=== PATIENT | female | born 1995 | race Caucasian/White ===

== ENCOUNTER 2022-07-20 06:00 | Inpatient (IN) | payer BC, OTHER ==
[2022-07-20 07:44] VITALS: BMI 27.3
[2022-07-20] MEDS: Lactated Ringer's 1,000 ML IV SCH ×2 (08:15→12:19)
[2022-07-20] MEDS ORDERED: hydrALAZINE 20 MG/ML VIAL SLOW IVP PRN ×2 (08:37→15:25)
[2022-07-20] MEDS ORDERED: Diphenoxylate HCl/Atropine Tablet PO PRN (08:37)
[2022-07-20] MEDS ORDERED: Acetaminophen 500 MG TAB PO PRN (08:37)
[2022-07-20] MEDS ORDERED: Lidocaine 1% (PF) 30 ML VIAL SC PRN (08:37)
[2022-07-20] MEDS ORDERED: HYDROcodone/Acetaminophen 5/325 mg Tablet PO PRN ×3 (08:37→15:25)
[2022-07-20] MEDS ORDERED: Promethazine HCl 25 MG/ML VIAL IM PRN ×2 (08:37→12:22)
[2022-07-20] MEDS ORDERED: Methylergonovine 0.2 MG/ML VIAL IM PRN (08:37)
[2022-07-20] MEDS ORDERED: Butorphanol Tartrate 1 MG/ML VIAL SLOW IVP PRN (08:37)
[2022-07-20] MEDS ORDERED: Misoprostol 200 MCG TAB PR PRN (08:37)
[2022-07-20] MEDS ORDERED: Ondansetron PF 4 MG/2 ML Vial IVP PRN ×3 (08:37→15:25)
[2022-07-20] MEDS ORDERED: Carboprost 250 MCG/ML AMP IM PRN (08:37)
[2022-07-20] MEDS ORDERED: Ibuprofen 800 MG TAB PO PRN (08:37)
[2022-07-20] MEDS ORDERED: NS w/ Oxytocin 30 units 500 ML IV SCH ×2 (08:45)
[2022-07-20 09:02] LABS: Hemoglobin 13.3 g/dL (12.0-15.5); Mean Corpuscular HGB CONC 34.9 g/dL (32.0-36.0); Mean Corpuscular Hemoglobin 29.2 pg (27.0-33.0); Mean Corpuscular Volume 83.7 fl (81.6-98.3); Mean Platelet Volume 10.8 fl (7.4-10.4); Platelet Count 200 10x3/uL (150-450); RBC Distribution Width 12.3 % (11.5-14.5); Red Blood Cell (RBC) Count 4.55 10x6/uL (3.90-5.03); White Blood Cell (WBC) Count 9.8 10x3/uL (3.5-10.5)
[2022-07-20 09:24] LABS: HBSAg Index 0.15 S/CO (0-0.99); Hep B Surf Ag Non-Reactive S/CO (NonReactive)
[2022-07-20 09:26] LABS: Syphilis Antibody Nonreactive (Nonreactive); Syphilis Antibody Index 0.03 S/CO (<1.00 Non-Reactive)
[2022-07-20 09:50] LABS: SARS-CoV-2 NAA Rapid Test Not Detected (NotDetected)
[2022-07-20] MEDS ORDERED: Fentanyl 2 mcg/Bup 0.1% Cadd 100 ML ONE (11:48)
[2022-07-20] MEDS ORDERED: ePHEDrine Sulfate 50 MG/10 ML VIAL SLOW IVP PRN (12:22)
[2022-07-20] MEDS ORDERED: Lactated Ringer's 500 ML IV PRN (12:22)
[2022-07-20] MEDS ORDERED: Moisturizing Cream (Eucerin) 113 GM JAR TOP PRN (12:22)
[2022-07-20] MEDS ORDERED: diphenhydrAMINE 50 MG/ML VIAL IVP PRN (12:22)
[2022-07-20] MEDS ORDERED: Acetaminophen 325 MG TAB PO PRN (12:22)
[2022-07-20] MEDS ORDERED: Naloxone HCl 0.4 mg/ml Vial IVP PRN ×2 (12:22)
[2022-07-20] MEDS ORDERED: Fentanyl 2 mcg/Bupivacaine 0.1% Cassette 100 ML EPIDURAL SCH (12:30)
[2022-07-20] MEDS ORDERED: Communication Order-Pharmacy FS SCH (12:30)
[2022-07-20] MEDS ORDERED: Famotidine/PF 20 mg/2ml Vial ONE (12:45)
[2022-07-20] MEDS ORDERED: Azithromycin 500 MG VIAL ONE (12:45)
[2022-07-20] MEDS ORDERED: CEFAZOLIN 2 GM VIAL ONE (12:45)
[2022-07-20] MEDS ORDERED: Misoprostol 200 MCG TAB ONE (12:53)
[2022-07-20] MEDS ORDERED: Methylergonovine 0.2 MG/ML VIAL ONE (12:54)
[2022-07-20] MEDS ORDERED: Bupivacaine 0.25% HCL 30 ML VIAL ONE (13:00)
[2022-07-20] MEDS ORDERED: Lanolin Ointment 7 GM TUBE TOP PRN (15:25)
[2022-07-20] MEDS ORDERED: Milk Of Magnesia 30 ML UDCUP PO PRN (15:25)
[2022-07-20] MEDS ORDERED: Bisacodyl 10 MG SUPP PR PRN (15:25)
[2022-07-20] MEDS ORDERED: Preparation H Ointment 28 GM TUBE PR PRN (15:25)
[2022-07-20] MEDS ORDERED: diphenhydrAMINE 25 MG CAP PO PRN (15:25)
[2022-07-20] MEDS ORDERED: Boostrix 0.5 ML (Tdap) VIAL (>/=7 yrs of age) IM ONE (15:25)
[2022-07-20] MEDS ORDERED: Benzocaine-Menthol 82.5 ML CAN TOP PRN (15:25)
[2022-07-20] MEDS: Ferrous Sulfate 325 MG TAB PO SCH (19:13)
[2022-07-20] MEDS: Docusate 100 MG CAP PO SCH (22:31)
[2022-07-20] MEDS: Ibuprofen 800 MG TAB PO SCH (22:32)
[2022-07-21] MEDS: Ibuprofen 800 MG TAB PO SCH ×2 (05:53→13:45)
[2022-07-21] MEDS: Ferrous Sulfate 325 MG TAB PO SCH (07:15)
[2022-07-21] MEDS: Docusate 100 MG CAP PO SCH (07:57)
[2022-07-21] MEDS ORDERED: Prenatal Vitamin 1 TAB PO SCH (09:00)
[2022-07-21 11:19] VITALS: BP 97/63; TEMP 98.3
== END 2022-07-21 15:40 | disposition home or self-care (01) | DRG 807 ==
LOC: CSHLD 07:10 → CSHPP 15:46
PROVIDERS: ADMIT Student in an Organized Health Care Education/Training Program; ATTEND Student in an Organized Health Care Education/Training Program
PROC: 10D07Z6 Extraction of Products of Conception, Vacuum, Via Natural or Artificial Opening (ICD-10-PCS; principal; 2022-07-20)
PROC: 0KQM0ZZ Repair Perineum Muscle, Open Approach (ICD-10-PCS; 2022-07-20)
DX: O70.1 Second degree perineal laceration during delivery (principal); Z37.0 Single live birth; Z3A.39 39 weeks gestation of pregnancy; Z20.822 Contact with and (suspected) exposure to COVID-19; O76 Abnormality in fetal heart rate and rhythm complicating labor and delivery
CPT/HCPCS: 36415; 51702; 85027; 86780; 86850; 86900; 86901; 87340; J2590; J7120; S0020; U0002